=== PATIENT | male | born 1960 | race African-American/Black ===

== ENCOUNTER 2018-12-11 13:04 | Emergency (ER) | payer MEDICARE, OTHER ==
[~2018-12-11] VITALS: Ht 175.3 cm; Wt 81.8 kg
[~2018-12-11 13:04] MED LIST: QUET400T PO
[2018-12-11 16:00] VITALS: BP 126/68
== END 2018-12-11 16:16 | disposition home or self-care (01) ==
LOC: EMS 13:07
DX: B86 Scabies (principal); F20.9 Schizophrenia, unspecified; Z79.899 Other long term (current) drug therapy